=== PATIENT | male | born 1985 | race Caucasian/White ===

== ENCOUNTER 2018-06-16 09:35 | Day surgery (SDC) | payer OTHER ==
[2018-06-16] MEDS ORDERED: EPINEPHrine 1MG/ML INJ 30ML MD-VIAL As Ordered (10:55)
[2018-06-16] MEDS ORDERED: MIDAZOLAM INJ 2 MG/2 ML VIAL (J2250) As Ordered (10:55)
[2018-06-16] MEDS ORDERED: LIDOCAINE W/EPINEPHRINE 1% 20ML VIAL As Ordered (10:55)
[2018-06-16] MEDS ORDERED: fentaNYL 250 MCG/5 ML INJECTION (J3010) As Ordered (10:56)
[2018-06-16] MEDS ORDERED: LIDOCAINE 2% INJ 100 MG/5 ML SDV (FOR ANES.) As Ordered (10:57)
[2018-06-16] MEDS ORDERED: ONDANSETRON 4MG/2ML VIAL (J2405) As Ordered ×2 (12:05→14:21)
[2018-06-16] MEDS ORDERED: ROCURONIUM BROMIDE 50 MG/5 ML VIAL As Ordered (12:05)
[2018-06-16] MEDS ORDERED: PROPOFOL 200 MG/20 ML VIAL As Ordered (12:05)
[2018-06-16] MEDS ORDERED: dexameTHASONE 4 MG/ML 1ML VIAL (J1100) As Ordered ×2 (12:05)
[2018-06-16] MEDS ORDERED: GLYCOPYRROLATE INJ 0.2 MG/ML 2 ML VIAL As Ordered (12:35)
[2018-06-16] MEDS ORDERED: NEOSTIGMINE 10 MG/10 ML VIAL (J2710) As Ordered (12:35)
[2018-06-16] MEDS ORDERED: ACETAMINOPH W/CODEINE #3 TAB UD PO (13:15)
[2018-06-16] MEDS ORDERED: fentaNYL 100 MCG/2 ML INJECTION (J3010) IV (13:15)
[2018-06-16] MEDS ORDERED: LR 1,000 ML IV ×2 (13:15)
[2018-06-16] MEDS: NORCO, ANEXSIA 5/325MG TABLET (HYDROcodone/ACETAMINOPHEN) PO ×2 (13:17→13:43)
[2018-06-16] MEDS: ONDANSETRON 4MG/2ML VIAL (J2405) IV (14:28)
[2018-06-16] MEDS ORDERED: ONDANSETRON 4 MG ORAL DISINTEGRATING TAB (Q0162 PER 1MG) As Ordered (16:20)
[2018-06-16] MEDS: ONDANSETRON 4 MG ORAL DISINTEGRATING TAB (Q0162 PER 1MG) PO (16:30)
== END 2018-06-16 16:58 | disposition home or self-care (01) ==
LOC: M SDC 09:35
DX: J34.2 Deviated nasal septum (principal); M95.0 Acquired deformity of nose; S43.491D Other sprain of right shoulder joint, subsequent encounter; R51 Headache
CPT/HCPCS: 30520

== ENCOUNTER → 2021-03-19 | Outpatient (REF) | payer OTHER ==
[~2021-03-19] MED LIST: KRIL1000 PO; LUTE10TA PO; MULT1TAB10 PO; PROBCAP4 PO
[2021-03-19 11:10] LABS: SEMEN APPEARANCE OPAQUE (OPAQUE)
[2021-03-19 11:11] LABS: SEMEN VISCOSITY LIQUID (LIQUID); SEMEN pH 8.5 (7.0-8.0); SPERM CONCENTRATION 42.8 M/ml (>=15.0); WBC CONCENTRATION <=1 M/ml (<=1 M/ml)
== END ==
LOC: M LAB REF 11:01
PROVIDERS: ATTEND Physician Assistant Medical
DX: N46.9 Male infertility, unspecified (principal)